=== PATIENT | male | born 1965 | race Caucasian/White ===

== ENCOUNTER 2019-03-20 09:27 | Emergency (ER) | payer MEDICARE ==
[~2019-03-20] VITALS: Ht 177.8 cm; Wt 74.8 kg
[~2019-03-20 09:27] MED LIST: CLON.5; CYCL10 PO; Cymbalta30 MG PO; DIAZ5 PO; FAMO20 PO; HYDACE10B PO; HYDACE5 PO; HYDACE7.5 PO; HYDCHL12.5 PO; HYDMOR2 PO; IBUP800 PO; LAMO100; LORA1 PO; LOSA25 PO; Lopressor 25 mg25 MG PO; META800; META800 PO; METH10 PO; METH40 PO; MIRT30; NAPR375 PO; NAPR500; NAPR500 PO; NAPR500EC PO; NAPR550 PO; OXYACE10 PO; OXYACE5T PO; OXYACE7.5T PO; OXYC10TA19 PO; Percocet 10-321 EACH PO; Prinivil5 MG PO; QUET200; QUET300; RXOXYACE PO; Robaxin500 MG PO; Voltaren100 GM TOP; XARELTO20 MG PO
[2019-03-20] MEDS ORDERED: TRAZ100 PO (10:35)
== END 2019-03-20 11:05 | disposition home or self-care (01) ==
LOC: ER 09:27
DX: M54.2 Cervicalgia (principal); Z88.6 Allergy status to analgesic agent; Z79.899 Other long term (current) drug therapy; F17.210 Nicotine dependence, cigarettes, uncomplicated
CPT/HCPCS: 96372; 99283-25; J1885; J3010